=== PATIENT | female | born 1945 | race Caucasian/White ===

== ENCOUNTER → 2017-05-25 | Outpatient (CLI) | payer BC ==
--- NOTE | 2017-05-25 11:59 | RAD ---
2 views of the Chest 05/25/2017 2:00 AM Indication: UPPER RESPIRATORY INFECTION, RULE OUT PNEUMONIA Comparison: None available Findings: No pneumothorax, pleural effusion, or focal infiltrate is identified. Heart size is within normal limits. Mild aortic calcification is noted. Bony thorax is grossly intact. Some motion is noted on lateral view. Impression: No evidence of acute cardiopulmonary process.
== END | disposition home or self-care (01) ==
LOC: DXRADRC 10:26
PROVIDERS: ATTEND Physician Assistant
DX: J06.9 Acute upper respiratory infection, unspecified (principal); I70.0 Atherosclerosis of aorta
CPT/HCPCS: 71020

== ENCOUNTER → 2021-07-05 | Outpatient (CLI) | payer BC ==
--- NOTE | 2021-07-05 12:31 | RAD ---
Bilateral digital screening 2-D and 3-D (digital breast tomosynthesis) mammogram: Reason for examination: Routine screening. Comparison: None. The patient's last mammogram was performed over 15 years ago. Interpretation was made with the benefit of CAD. FINDINGS: Breast density: Category B. There are scattered areas of fibroglandular density. No suspicious breast mass, malignant appearing calcifications, or architectural distortion is seen. IMPRESSION: No evidence of malignancy. Assessment: BI-RADS 1. Negative. Recommendation: Routine screening mammograms. The patient will receive a letter with the results in the mail. Patient information will be entered i nto the mammography reminder system with a target recall date for the next mammogram. A reminder moraima er will be generated. Electronically signed by: Charity Hoffman MD (07/05/2021 12:29 PM) [id number]
== END ==
LOC: MAMMO 08:37
PROVIDERS: ATTEND Physician Assistant
DX: Z12.31 Encounter for screening mammogram for malignant neoplasm of breast (principal)
CPT/HCPCS: 77063; 77067

== ENCOUNTER 2021-09-12 02:54 | Emergency (ER) | payer BC, MEDICARE ==
[~2021-09-12] VITALS: Ht 157.5 cm; Wt 80.4 kg
--- NOTE | 2021-09-12 02:58 | PHYS DOC ---
General Adult EDM: Chief Complaint: NAUSEA/VOMITING/DIARRHEA HPI: HPI: ".. I ve not been able to sleep since 930.. I ve been up all night.. I got pain on both sides of my abdomen.. feel s like I am going to get diarrhea... I never come to ED.. I usually just go see Dr. Saucedo. .. if I get sick...but I am never sick.. " Patient is a 76 year old female who presents with above hx and compaint of nausea, abdomen pain. Patient states the pain has been constant since 2129 hrs. With no improvement. Patient denies any bad food intake. Patient denies any trauma. No specific ill contacts. Normally healthy. Did get COVID vaccination and booster. Did get flu vaccination. Patient normally follows with [facility] for care. Patient never had a colonoscopy. Patient localizes pain in bilateral flanks but more anterior. Patient has been passing gas. Had a normal stool earlier. No ill contacts at home. No recent travel. Review of Systems: Review of Systems: Constitutional: Denies fever or chills Eyes: Denies change in visual acuity HENT: Denies nasal congestion or sore throat Respiratory: Denies cough or shortness of breath Cardiovascular: Denies chest pain or edema GI: Complaints abdominal pain, nausea, vomiting, bloody stools or diarrhea : Denies dysuria Musculoskeletal: Denies back pain or joint pain Integument: Denies rash Neurologic: Denies headache, focal weakness or sensory changes Endocrine: Denies polyuria or polydipsia Lymphatic: Denies swollen glands Psychiatric: Denies depression or anxiety Family History: Family History: Non-contributory Current Medications: Current Meds: See Nursing Allergies: Allergies: Pencillins Physical Exam: PE: Constitutional: moderate acute distress, non-toxic appearance. [] HENT: Normocephalic, atraumatic, bilateral external ears normal, oropharynx moist, no oral exudates, nose normal. [] Eyes: PERRLA, EOMI, conjunctiva normal, no discharge. [] Neck: Normal range of motion, no tenderness, supple, no stridor. [] Cardiovascular:Heart rate regular rhythm, no murmur [] Lungs & Thorax: Bilateral breath sounds clear to auscultation [] Abdomen: Bowel sounds hyperactivde, soft, mild tenderness, no masses, no pulsatile masses. [] Skin: Warm, dry, no erythema, no rash. [] Back: No tenderness, no CVA tenderness. [] Extremities: No tenderness, no cyanosis, no clubbing, ROM intact, no edema. [] Neurologic: Alert and oriented X 3, normal motor function, normal sensory function, no focal deficits noted. [] Psychologic: Affect normal, judgement normal, mood normal. [] EKG: EKG: My interpretation EKG shows sinus at 66 bpm. No acute morphology time of EKG is 341 hours [] Radiology/Procedures: Radiology/Procedures: [address] [address] IMAGING REPORT Signed PATIENT: MATT FERRARA ACCOUNT: [id number] : 1945 LOCATION: ER AGE: 76 SEX: F EXAM STATUS: REG ER ORD. PHYSICIAN: KEL WHITAKER MD REASON: Abdomen pain Omni 300 75cc PROCEDURE: CT ABD PELV W/ORAL&IV CONTRAST PQRS Compliance Statement: One or more of the following individualized dose reduction techniques were utilized for this examination: 1. Automated exposure control 2. Adjustment of the mA and/or kV according to patient size 3. Use of iterative reconstruction technique CT abdomen/pelvis with contrast 09/12/2021 5:06 AM INDICATION: Abdominal pain COMPARISON: None available TECHNIQUE: Multiple axial CT images of the abdomen and pelvis were obtained after the intravenous administration of 75 mL Omnipaque 300. Coronal and sagittal reformats are provided. FINDINGS: There is subsegmental atelectasis at the lung bases. Heart size is borderline enlarged. Calcification identified in the lateral segment left hepatic lobe which may be associated with prior granuloma is exposure. No suspicious hepatic lesions. Spleen, adrenal glands and gallbladder are normal in appearance. There is moderate fatty atrophy of the pancreas. Abdominal aorta is normal in course and caliber. Mild calcified atheromatous plaque. No path ologically enlarged lymph nodes in abdomen and pelvis. There is no free fluid or free intraperitoneal air. Oral contrast was administered. Opacified bowel loops demonstrate normal mucosal fold pattern. Small and large bowel are normal in caliber. There is no evidence for bowel obstruction. There are no pericolonic inflammatory changes. A normal, nondilated appendix is visualized without adjacent inflammatory changes. Moderate diverticulosis. The kidneys enhance symmetrically. There is no suspicious renal mass. There is no hydronephrosis. There are no suspected calculi within the kidneys, ureters or urinary bladder. Bilateral renal parapelvic cysts are identified. Urinary bladder within normal limits given degree of distention. Uterus and adnexa are normal by CT. There is minimal anterolisthesis of L4 on L5. No suspicious osseous abnormality. IMPRESSION: No acute abnormality identified within the abdomen and pelvis as detailed above. Electronically signed by: Pasha Azar MD (09/12/2021 5:40 AM) [facility] DICTATED AND SIGNED BY: PASHA AZAR MD DATE: 09/12/2122 CC: KEL WHITAKER MD; MAGGIE SAUCEDO ~MTH0 0 [][place] [address] IMAGING REPORT Signed PATIENT: MATT FERRARA ACCOUNT: [id number] : 1945 LOCATION: ER AGE: 76 SEX: F EXAM STATUS: REG ER ORD. PHYSICIAN: KEL WHITAKER MD REASON: Nausea and vomiting PROCEDURE: ACUTE ABDOMEN SERIES Acute Abdominal Series: 09/12/2021 3:17 AM Reason for study: Nausea and vomiting. Comparison studies: None. Technique: Frontal view of the chest was obtained along with supine and upright views of the abdomen. Findings: Nonobstructive bowel gas pattern. No air fluid levels or free air. The lungs are clear without acute consolidative opacity. No pleural effusion or pneumothorax. The cardiac and mediastinal contours are normal. Visualized osseous structures are intact. IMPRESSION: 1. Nonobstructed bowel gas pattern. 2. No acute cardiopulmonary findings. Electronically signed by: Pasha Azar MD (09/12/2021 3:35 AM) [facility] DICTATED AND SIGNED BY: PASHA AZAR MD DATE: 09/12/21 033 CC: KEL WHITAKER MD; MAGGIE SAUCEDO ~MTH0 0 Heart Score: C/O Chest Pain: N/A HEART Score for Chest Pain: HEART Score for Chest Pain Response (Comments) Value History Slighlty/Non-Suspicious 0 ECG Normal 0 Age > 65 2 Risk Factors No Risk Factors 0 Total 2 Risk Factors: Risk Factors: DM, Current or recent (<one month) smoker, HTN, HLP, family history of CAD, obesity. Risk Scores: Score 0 - 3: 2.5% MACE over next 6 weeks - Discharge Home Score 4 - 6: 20.3% MACE over next 6 weeks - Admit for Clinical Observation Score 7 - 10: 72.7% MACE over next 6 weeks - Early Invasive Strategies Course & Med Decision Making: Course & Med Decision Making Pertinent Labs and Imaging studies reviewed. (See chart for details) Stay on clear fluid diet x 48 hrs. No solid or milk products. Take Cipro 500 mg twice a day. Take Flagyl 500 mg twice a day. Take Zofran 8 mg up to 4 times a day for nausea and vomiting. Take Tylenol and ibuprofen for pain. Follow-up primary care. Return if any concerns. Impression: 1. Acute gastroenteritis 2. Abdomen pain 3. Urinary tract infection [] Dragon Disclaimer: Drag[place]oni Disclaimer: This electronic medical record was generated, in whole or in part, using a voice recognition dictation system. Departure Departure: Referrals: MAGGIE SAUCEDO (PCP) Scripts Ondansetron (ONDANSETRON ODT) 8 Mg Tab.rapdis 8 MG PO QIDPRN PRN for NAUSEA/VOMITING, #30 TAB Prov: KEL WHITAKER MD 09/12/21 Metronidazole (FLAGYL) 375 Mg Capsule 500 MG PO BID for gastroenteritis for 10 Days, #27 CAP Prov: KEL WHITAKER MD 09/12/21 Ciprofloxacin Hcl (CIPROFLOXACIN HCL) 500 Mg Tablet 1 TAB PO BID for uti, #10 TAB Prov: KEL WHITAKER MD 09/12/21 Dragon Disclaimer This chart was dictated in whole or in part using Voice Recognition software in a busy, high-work load, and often noisy Emergency Department environment. It may contain unintended and wholly unrecognized errors or omissions. KEL WHITAKER MD Sep 12, 2021 02:58
[2021-09-12] MEDS ORDERED: IV RINGERS SOLUTION,LACTATED 1,000 ML IV SCH (03:00)
[2021-09-12] MEDS ORDERED: FAMOTIDINE 20 MG/2 ML VIAL IVP ONE (03:00)
[2021-09-12] MEDS ORDERED: ONDANSETRON PF 4 MG/2 ML VIAL. IVP ONE (03:00)
[2021-09-12] MEDS ORDERED: KETOROLAC 15 MG/ML VIAL. IVP ONE (03:15)
--- NOTE | 2021-09-12 03:37 | RAD ---
Acute Abdominal Series: 09/12/2021 3:17 AM Reason for study: Nausea and vomiting. Comparison studies: None. Technique: Frontal view of the chest was obtained along with supine and upright views of the abdomen. Findings: Nonobstructive bowel gas pattern. No air fluid levels or free air. The lungs are clear without acute consolidative opacity. No pleural effusion or pneumothorax. The car diac and mediastinal contours are normal. Visualized osseous structures are intact. IMPRESSION: 1. Nonobstructed bowel gas pattern. 2. No acute cardiopulmonary findings. Electronically signed by: Reina Finnegan MD (09/12/2021 3:35 AM) JOELLE
--- NOTE | 2021-09-12 03:56 | EKG ---
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
[2021-09-12 04:02] LABS: BASO % 1 % (0-3); EOS # 0.4 x10^3/uL (0.0-0.7); EOS % 6 % (0-3); HEMATOCRIT 45.3 % (36.0-47.0); HEMOGLOBIN 15.1 g/dL (12.0-15.5); LYMPH # 1.9 x10^3/uL (1.0-4.8); LYMPH % 28 % (24-48); MEAN CORPUSCULAR HEMOGLOBIN 30 pg (25-35); MEAN CORPUSCULAR HGB CONC 33 g/dL (31-37); MEAN CORPUSCULAR VOLUME 91 fL (79-100); MONO # 0.6 x10^3/uL (0.0-1.1); MONO % 10 % (0-9); NEUT # 3.7 x10^3uL (1.8-7.7); NEUT % 56 % (31-73); PLATELET COUNT 234 x10^3/uL (140-400); RED BLOOD COUNT 4.99 x10^6/uL (3.50-5.40); RED CELL DISTRIBUTION WIDTH 14.1 % (11.5-14.5); WHITE BLOOD COUNT 6.6 x10^3/uL (4.0-11.0)
[2021-09-12] MEDS ORDERED: IOHEXOL 240 MG/ML 50ML VIAL. ONE (04:07)
[2021-09-12 04:10] LABS: CLARITY,URINE HAZY; COLOR,URINE YELLOW
[2021-09-12 04:11] LABS: BACTERIA,URINE FEW /HPF (0-FEW); GLUCOSE,URINE NEG (NEG); NITRITE,URINE NEG (NEG); RBC,URINE OCC /HPF (0-2); SQUAMOUS EPITHELIAL CELL,UR MOD /LPF; UROBILINOGEN,URINE 0.2 mg/dL (0.2 mg/dL); WBC,URINE >40 /HPF (0-4)
[2021-09-12 04:11] LABS: INFLUENZA A PATIENT NEGATIVE (NEGATIVE); INFLUENZA B PATIENT NEGATIVE (NEGATIVE)
[2021-09-12] MEDS ORDERED: MORPHINE SULFATE 10 MG/ML SYRINGE. SQ ONE (04:15)
[2021-09-12] MEDS ORDERED: CIPROFLOXACIN HCL 500 MG TABLET PO ONE (04:15)
[2021-09-12] MEDS ORDERED: IOHEXOL 300 MG/ML 75 ML VIAL. IV ONE (04:15)
[2021-09-12 04:35] LABS: BARBITURATES NEG (NEG); BENZODIAZEPINES NEG (NEG); CANNABINOIDS NEG (NEG); COCAINE NEG (NEG); METHADONE NEG (NEG); OPIATES NEG (NEG); PHENCYCLIDINE NEG (NEG)
[2021-09-12 04:38] LABS: AMPHETAMINE/METHAMPHETAMINE NEG (NEG)
[2021-09-12 04:38] LABS: CALCIUM 9.3 mg/dL (8.5-10.1); GFR 54.1
[2021-09-12 04:44] LABS: ALBUMIN 3.5 g/dL (3.4-5.0); DIRECT BILIRUBIN 0.1 mg/dL (0.0-0.2); TOTAL BILIRUBIN 0.7 mg/dL (0.2-1.0); TOTAL PROTEIN 6.5 g/dL (6.4-8.2)
[2021-09-12] MEDS ORDERED: metroNIDAZOLE 500 MG TABLET PO ONE (05:15)
[2021-09-12 05:34] VITALS: BP 108/76
--- NOTE | 2021-09-12 05:42 | RAD ---
PQRS Compliance Statement: One or more of the following individualized dose reduction techniques were utilized for this examinat ion: 1. Automated exposure control 2. Adjustment of the mA and/or kV according to patient size 3. Use of iterative reconstruction technique CT abdomen/pelvis with contrast 09/12/2021 5:06 AM INDICATION: Abdominal pain COMPARISON: None available TECHNIQUE: Multiple axial CT images of the abdomen and pelvis were obtained after the intravenous adm inistration of 75 mL Omnipaque 300. Coronal and sagittal reformats are provided. FINDINGS: There is subsegmental atelectasis at the lung bases. Heart size is borderline enlarged. Johan cification identified in the lateral segment left hepatic lobe which may be associated with prior gra nuloma is exposure. No suspicious hepatic lesions. Spleen, adrenal glands and gallbladder are normal in appearance. There is moderate fatty atrophy of the pancreas. Abdominal aorta is normal in course a nd caliber. Mild calcified atheromatous plaque. No pathologically enlarged lymph nodes in abdomen and pelvis. There is no free fluid or free intraperitoneal air. Oral contrast was administered. Opacifie d bowel loops demonstrate normal mucosal fold pattern. Small and large bowel are normal in caliber. T here is no evidence for bowel obstruction. There are no pericolonic inflammatory changes. A normal, n ondilated appendix is visualized without adjacent inflammatory changes. Moderate diverticulosis. The kidneys enhance symmetrically. There is no suspicious renal mass. There is no hydronephrosis. There a re no suspected calculi within the kidneys, ureters or urinary bladder. Bilateral renal parapelvic cy sts are identified. Urinary bladder within normal limits given degree of distention. Uterus and adnex a are normal by CT. There is minimal anterolisthesis of L4 on L5. No suspicious osseous abnormality. IMPRESSION: No acute abnormality identified within the abdomen and pelvis as detailed above. Electronically signed by: Reina Finnegan MD (09/12/2021 5:40 AM) [facility]
[2021-09-12] MEDS ORDERED: METR375C PO (05:53)
[2021-09-12] MEDS ORDERED: CIPR500T2 PO (05:53)
[2021-09-12] MEDS ORDERED: ONDA8TAB15 PO (05:54)
--- NOTE | 2021-09-12 06:15 | EKG ---
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
== END 2021-09-12 06:00 | disposition home health service (06) ==
LOC: ER 02:54
DX: K52.9 Noninfective gastroenteritis and colitis, unspecified (principal); N39.0 Urinary tract infection, site not specified; Z20.822 Contact with and (suspected) exposure to COVID-19
CPT/HCPCS: 36415; 74022; 74177; 80048; 80076; 80307; 81001; 82150; 82550; 83690; 84484; 85025; 85610; 85730; 87086; 87428; 93005; 96361; 96372; 96374; 96375; 99285; J1885; J2270; J2405; J3490; J7120; Q9967; 87426